=== PATIENT | male | born 1950 | race Caucasian/White ===

== ENCOUNTER 2018-11-08 07:47 | Day surgery (SDC) | payer OTHER ==
[2018-11-06 17:00] VITALS: BP 129/73
[2018-11-06 17:18] LABS: BASOPHILS % (AUTO) 0.9 % (0.0-5.0); EOSINOPHILS % (AUTO) 1.6 % (0.0-8.0); HEMATOCRIT 42.2 % (42-54); LYMPHOCYTES % (AUTO) 27.3 % (21.0-51.0); MEAN CORPUSCULAR HEMOGLOBIN 32.1 pg (27.0-33.0); MEAN CORPUSCULAR HGB CONC 33.8 g/dL (32.0-36.0); MEAN CORPUSCULAR VOLUME 94.8 fL (79-99); MONOCYTES % (AUTO) 9.8 % (3.0-13.0); NEUTROPHILS % (AUTO) 60.4 % (40.0-77.0); PLATELET COUNT (AUTO) 271 K/uL (130-400); RED BLOOD CELL COUNT(AUTO) 4.45 MIL/uL (4.50-6.20); RED CELL DISTRIBUTION WIDTH 13.4 % (11.0-15.5); WHITE BLOOD COUNT (AUTO) 5.7 K/uL (4.8-10.8)
[2018-11-06 17:28] LABS: CREATININE 0.9 mg/dL (0.5-1.5); POTASSIUM 4.7 mmol/L (3.5-5.1)
[2018-11-06 17:31] LABS: INR 1.55 (0.85-1.15); PROTHROMBIN TIME 16.1 SEC (9.6-11.6)
--- NOTE | 2018-11-07 08:42 | NUR ---
REPORTED AND FAXED ABNORMAL LABS TO DR. LOWE OFFICE. RBC 4.45. PT 16.1,INR1.55 AND PTT 36.0 [address] OREN AT [address]. LOWE OFFICE. THEY WILL SHOW THEM TO DR. RAMOS AND HE WILL CALL BACK WITH ORDERS IF NEEDED.
--- NOTE | 2018-11-07 09:27 | NUR ---
JANINA BECK HEADWAITRESS REVIEWED EKG, OK TO PROCEED. PER PT HE WAS TOLD TO STOP WARFARIN OF AND TO START HEPARIN SQ BID. PER PATIENT DR. RAMOS IS AWARE, PT SAW DR. RAMOS YESTERDAY AND AWARE OF PLAN. LABS SHOWN TO DR. RAMOS BY STEPHEN. PER DR. RAMOS OK TO PROCEED REDRAW PT, PTT ON DAY OF PROCEDURE.
[2018-11-08] VITALS (11 sets, daily range): BP systolic 115–146; BP diastolic 58–84
[~2018-11-08] VITALS: Ht 170.2 cm; Wt 75.4 kg
[~2018-11-08 07:47] MED LIST: WARF10TA45 PO
[2018-11-08] MEDS ORDERED: LACTATED RINGERS 1000ML 1,000 ML IV ONE (09:16)
[2018-11-08] MEDS ORDERED: [UNRECOGNIZED DRUG - CODE] SQ (09:24)
[2018-11-08 09:36] LABS: INR 1.14 (0.85-1.15); PARTIAL THROMBOPLASTIN TIME 31.6 SEC (26.3-35.5); PROTHROMBIN TIME 11.9 SEC (9.6-11.6)
[2018-11-08] MEDS ORDERED: LIDOCAINE PF 2% 5ML ABBOJECT ONE (10:29)
[2018-11-08] MEDS ORDERED: PROPOFOL 10 MG/ML 20ML VIAL IV ONE (10:30)
[2018-11-08] MEDS ORDERED: FENTANYL CITRATE PF 50 MCG/1 ML 2ML VIAL ONE (10:30)
[2018-11-08] MEDS: CEFAZOLIN SODIUM 1 GM VIAL ONE ×2 (10:32→10:40)
[2018-11-08] MEDS ORDERED: BUPIVACAINE/PF 0.25% 30ML VIAL IJ ONE (10:37)
[2018-11-08] MEDS ORDERED: CEFAZOLIN SODIUM 1 GM VIAL ONE (10:51)
[2018-11-08] MEDS ORDERED: BACITRACIN 28.4 GM OINT TP ONE (11:23)
[2018-11-08] MEDS ORDERED: MORPHINE SULFATE 2 MG/ML 1ML SYG ONE (11:43)
--- NOTE | 2018-11-08 13:15 | NUR ---
PT DISCHARGED HOME, TOLERATING FLUIDS WELL, DENIES ANY SEVERE PAIN, NAUSEA, OR DIZZINESS. LEFT SCROTUM INCISION COVERED WITH GAUZE AND SUPPORTED WITH SCROTAL SUPPORT BRIEFS, NO SIGNS OF ANY BLEEDING OR DISCHARGE NOTED. PT SENT HOME WITH GAUZE AND ICE PACKS FOR HOME USE. SOME DISCOMFORT WHEN SITTING UPRIGHT, PT ENCOURAGED TO USE PILLOWS FOR SUPPORT. AMBULATING WELL. PRESCRIPTION GIVEN TO SPOUSE. PT AND SPOUSE REPORT NO FURTHER QUESTIONS AT THIS TIME.
== END 2018-11-08 13:15 | disposition home or self-care (01) ==
LOC: DAH 07:47
PROVIDERS: ATTEND Urology
DX: N43.3 Hydrocele, unspecified (principal); Z96.641 Presence of right artificial hip joint; Z98.890 Other specified postprocedural states; Z79.899 Other long term (current) drug therapy; Z79.01 Long term (current) use of anticoagulants
CPT/HCPCS: 36415 ×2; 55040; 71045; 80048; 85025; 85610 ×2; 85730 ×2; 93005; A4218; A4600; A4606; J0690 ×2; J2001; J2704; J3010; J3490; J7030; J7120 ×2